=== PATIENT | male | born 1990 | race African-American/Black ===

== ENCOUNTER → 2018-01-05 | Outpatient (REF) ==
[2018-01-07 08:19] LABS: RUBEOLA IgG ANTIBODY 69.8 AU/mL (Immune >29.9)
[2018-01-07 09:01] LABS: RUBELLA IgG QUALITATIVE IMMUNE (IMMUNE)
== END ==
LOC: M LAB 16:18
DX: Z02.1 Encounter for pre-employment examination (principal)